=== PATIENT | female | born 1965 | race Caucasian/White ===

== ENCOUNTER → 2022-08-17 09:48 | Outpatient (CLI) | payer OTHER, SELFPAY ==
--- NOTE | ~2022-08-17 | MR_ITS ---
MRI of the left shoulder Technique: Axial proton-density fat-sat images, coronal proton density fat-sat and T2 fat-sat images, and sagittal T1-weighted and T2 fat-sat images were acquired. Clinical History: Pain Findings: There is minimal AC joint degenerative change. No subacromial spur. Coracoclavicular, corac oacromial, and coracohumeral ligament are intact. Supraspinatus and infraspinatus tendons are intact, without partial or full-thickness tear. There is minimal tendinosis. Subscapularis tendon is intact. Tendon of the long head of the biceps is intact. Probable degenerative tear of the superior labrum. No significant degenerative change or effusion of the glenohumeral joint. No fluid distention of the subacromial/subdeltoid bursa. No muscle atrophy or edema. Inferior glenohumeral ligament is intact. 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 Minimal rotator cuff tendinosis. Reviewed, dictated and finalized at [facility]. [address] [employer]
== END ==
PROVIDERS: PCP Family Medicine; Visit Provider Orthopaedic Surgery
DX: M25.512 Pain in left shoulder (principal); G89.29 Other chronic pain; R93.6 Abnormal findings on diagnostic imaging of limbs
CPT/HCPCS: 73221